=== PATIENT | female | born 1990 | race Caucasian/White ===

== ENCOUNTER 2017-06-28 02:13 | Emergency (ER) | payer OTHER ==
[~2017-06-28] VITALS: Ht 162.6 cm; Wt 93.1 kg
[2017-06-28 02:17] VITALS: BP 171/98; PULSE 80; RESP 18; TEMP 98; O2SAT 99
[2017-06-28 02:37] VITALS: BP 134/74; PULSE 76; RESP 22
[2017-06-28] MEDS ORDERED: RESP: ALBUTEROL 2.5 MG/IPRATROPIUM 0.5 MG NEB (SCH) NEB ONE (02:45)
--- NOTE | 2017-06-28 02:47 | PD ---
HPI Chief Complaint: Cold / Flu Symptoms Time Seen by Provider: 02:44 Travel History International Travel<30 days: No Contact w/Intl Traveler<30days: No Traveled to known affect area: No History of Present Illness HPI 26-year-old female presents to the emergency department by private transportation and care of her family for evaluation of cough wheezing myalgias arthralgias after recent diagnosis of colitis and influenza. Patient states she recently went to urgent care and was diagnosed with bronchitis and influenza. Patient was started on Tamiflu an inhaler prednisone and Cipro. Patient reports that she does not feel symptomatically improved. Patient is taking no medications for fever or chills and has not checked her temperature. Last menses 06/19/17. PFSH Past Medical History Medical History: Denies Significant Hx Tetanus Vaccination: < 5 Years Influenza Vaccination: No ?: Not LMP: 06/19/17 Past Surgical History Surgical History: No Previous Surgery Social History Alcohol Use: No Tobacco Use: No Substance Use: No Allergies-Medications (Allergen,Severity, Reaction): Coded Allergies: amoxicillin (Verified Allergy, Intermediate, rash, 06/28/17) Reported Meds & Prescriptions Reported Meds & Active Scripts Active Reported Proventil Hfa 6.7 GM Inh (Albuterol Sulfate) 90 Mcg/Act Aer 2 Puff INH Q4-6H PRN Prednisone 10 Mg Tab 10 Mg PO DAILY Cipro (Ciprofloxacin HCl) 500 Mg Tab 500 Mg PO BID Review of Systems Except as stated in HPI: all other systems reviewed are Neg General / Constitutional: Positive: Fever HENT: Positive: Congestion, No: Sore Throat Cardiovascular: No: Chest Pain or Discomfort Respiratory: Positive: Cough, Wheezing Gastrointestinal: No: Vomiting Genitourinary: No: Dysuria Musculoskeletal: Positive: Myalgias, Arthralgias Skin: No Rash Hematologic/Lymphatic: No: Lymph Node Enlargement Physical Exam Narrative GENERAL: Well-developed well-nourished female no acute distress no respiratory distress with intermittent coughing SKIN: Warm and dry. HEAD: Normocephalic. EYES: No scleral icterus. No injection or drainage. NECK: Supple, trachea midline. No JVD or lymphadenopathy. CARDIOVASCULAR: Regular rate and rhythm without murmurs, gallops, or rubs. RESPIRATORY: Breath sounds equal bilaterally few end expiratory wheezes. No accessory muscle use. GASTROINTESTINAL: Abdomen soft, non-tender, nondistended. MUSCULOSKELETAL: No cyanosis, or edema. BACK: Nontender without obvious deformity. No CVA tenderness. Data Data Last Documented VS Vital Signs Date Time Temp Pulse Resp B/P (MAP) Pulse Ox O2 Delivery O2 Flow Rate FiO2 06/28/17 02:37 22 06/28/17 02:37 76 134/74 (94) 06/28/17 02:17 98.0 99 Orders Orders Chest, Pa & Lat (06/28/17 ) Albuterol-Ipratropium Neb (Duoneb Neb) (06/28/17 02:45) Ed Discharge Order (06/28/17 04:02) MDM Medical Decision Making Medical Screen Exam Complete: Yes Emergency Medical Condition: Yes Medical Record Reviewed: Yes Interpretation(s) POC hcg: Last Impressions Chest X-Ray 06/28/17 0000 Signed Impressions: Service Date/Time: Wednesday, June 28, 2017 03:09 - CONCLUSION: No acute cardiopulmonary disease. Meño Day MD Vital Signs Date Time Temp Pulse Resp B/P (MAP) Pulse Ox O2 Delivery O2 Flow Rate FiO2 06/28/17 02:37 22 06/28/17 02:37 76 22 134/74 (94) 06/28/17 02:17 98.0 80 18 171/98 (122) 99 Differential Diagnosis Cough, pleurisy, pneumonia Narrative Course Patient with recent diagnosis of influenza and bronchitis currently prescribed prednisone Cipro albuterol as needed and Tamiflu. Patient has been taking medications as prescribed. Patient states that she presents here because she does not feel like she is getting better and she complains of a burning sensation when she coughs in her anterior chest and then myalgias and arthralgias. Patient states she has taken acetaminophen but has not checked her temperature just feels subjectively as though she has a fever. Cough is nonproductive. No prior history of respiratory illness bronchitis or pneumonia Chest x-ray ordered; no infiltrate no pneumonia [id number] hCG Patient given DuoNeb updraft lung sounds are clear to auscultation at this time. Patient is stable for outpatient management Diagnosis Primary Impression: Bronchitis Referrals: Primary Care Physician 2 days Patient Instructions: General Instructions Additional Instructions: Increase fluid hydration Follow-up with primary care provider Take medications as prescribed Take acetaminophen/Tylenol every 4 hours for fever 100.4F or greater Take ibuprofen 600 mg as often as every 6-8 hours as needed for pain Associates inflammation Recommend use of H2 blockers such as Zantac 150 twice daily for the next 7 days Take cough medication as prescribed as needed for cough suppression be aware that cough medication does have narcotic and may impair judgment, delayed reaction time, increased risk for fall, cause constipation; do not drive, drink alcohol ,or handle heavy equipment while taking this medication. Return to the emergency department for any concerns or change in condition No work 1 Med/Other Pt SpecificInfo: Prescription(s) given Scripts Hydrocodone-Guaifenesin Liq (Flowtuss Liq) 2.5-200 Mg/5 Ml Soln 5 ML PO Q6H Y for COUGH AND/OR COLD SYMPTOMS, #120 ML 0 Refills Prov: Mary Grant MD 06/28/17 Disposition: 01 DISCHARGE HOME Condition: Stable Mary Grant MD Jun 28, 2017 02:47
[2017-06-28] MEDS ORDERED: CIPR-9 PO (02:49)
[2017-06-28] MEDS ORDERED: ALBU6.7H INH (02:49)
[2017-06-28] MEDS ORDERED: PRED10 PO (02:49)
--- NOTE | 2017-06-28 03:18 | RADRPT ---
EXAM DATE/TIME: 06/28/2017 03:09 [facility] COMPARISON: No previous studies available for comparison. INDICATIONS : Cough, chest pressure for 1 week MEDICAL HISTORY : None. SURGICAL HISTORY : None. ENCOUNTER: Initial ACUITY: 1 week PAIN SCORE: 0/10 LOCATION: Bilateral chest FINDINGS: The lungs are clear without infiltrate, nodule, or mass. There is no appreciable pleural effusion fo r technique. Heart and mediastinum are unremarkable. CONCLUSION: No acute cardiopulmonary disease. Meño Day MD on June 28, 2017 at 3:17 Board Certified Radiologist. This report was verified electronically.
[2017-06-28] MEDS ORDERED: HYDR1SOL20 PO (04:08)
[2017-06-28 04:48] VITALS: BP 132/76
== END 2017-06-28 04:50 | disposition home or self-care (01) ==
LOC: PHED 02:13
DX: J40 Bronchitis, not specified as acute or chronic (principal); M79.1 Myalgia
CPT/HCPCS: 71046; 94664; 99283